=== PATIENT | male | born 1965 | race African-American/Black ===

== ENCOUNTER 2018-06-26 20:46 | Emergency (ER) | payer SELFPAY ==
[~2018-06-26] VITALS: Ht 188 cm; Wt 90.9 kg
[2018-06-26] MEDS ORDERED: SODIUM CHLORIDE 0.9% 1,000 ML IV ONE (21:15)
[2018-06-26 21:59] VITALS: BP 127/85
== END 2018-06-26 22:15 | disposition home or self-care (01) ==
LOC: EMS 20:48 → EDBD 20:48 → EMS 22:15
DX: F10.129 Alcohol abuse with intoxication, unspecified (principal); F17.210 Nicotine dependence, cigarettes, uncomplicated; F19.10 Other psychoactive substance abuse, uncomplicated; Y90.9 Presence of alcohol in blood, level not specified
CPT/HCPCS: 99283; 99406